=== PATIENT | female | born 1940 | race Caucasian/White ===

== ENCOUNTER 2021-07-30 19:45 | Inpatient (IN) | payer OTHER, MEDICAID ==
[~2021-07-30] VITALS: Ht 144.8 cm; Wt 61.9 kg
[2021-07-30 21:31] LABS: Basophils # (auto) 0.1 10 ^3/uL (0-0.2); Basophils % (auto) 1.1 % (0.0-2.0); Eosinophils # (auto) 0.2 10 ^3/uL (0-0.8); Eosinophils % (auto) 1.9 % (0.0-7.0); Hematocrit 31.4 % (36.0-46.0); Hemoglobin 10.4 g/dL (12.2-16.2); Lymphocytes # (auto) 1.1 10 ^3/uL (0.4-5.4); Lymphocytes % (auto) 8.2 % (10.0-50.0); Mean Corpuscular Hemoglobin 27.1 pg (28.0-32.0); Mean Corpuscular Hgb Conc. 33.1 g/dL (32.0-36.0); Mean Corpuscular Volume 82.1 fL (80.0-100.0); Monocytes # (auto) 0.9 10 ^3/uL (0-1.3); Monocytes % (auto) 6.7 % (0.0-12.0); Neutrophils # (auto) 10.6 10 ^3/uL (1.6-8.6); Neutrophils % (auto) 82.1 % (37.0-80.0); Nucleated Red Blood Cells % 0.1 %; Red Blood Cells 3.82 10^6/uL (4.0-5.20); Red Cell Distribution Width 14.5 % (11.8-14.3); White Blood Cell 12.9 10^3/uL (4.4-10.8)
[2021-07-30 21:32] LABS: Albumin 3.1 g/dL (3.4-5.0); Calcium 6.9 mg/dL (8.5-10.1); Magnesium 1.5 mg/dL (1.6-2.6); Potassium 3.1 mmol/L (3.5-5.1)
[2021-07-30 21:39] LABS: BUN/Creatinine Ratio 14.9; Bilirubin, Total 0.3 mg/dL (0.2-1.0); Total Protein 7.2 g/dL (6.4-8.2)
[2021-07-30 21:58] LABS: INR 1.16 (0.9-1.15); Partial Thromboplastin Time 31.4 sec (23.6-33.0)
[2021-07-30] MEDS ORDERED: ACETAMINOPHEN 325 MG TAB PO PRN (22:45)
[2021-07-30] MEDS ORDERED: MORPHINE SULFATE INJECTION 2 MG/ML SYRG IV PRN (22:45)
[2021-07-30] MEDS ORDERED: ONDANSETRON HCL 4 MG/2 ML VIAL IV PRN (22:45)
[2021-07-30] MEDS ORDERED: ENOXAPARIN SOD 100 MG/1 ML SYRINGE SC ONE (22:45)
[2021-07-30] MEDS ORDERED: NITROGLYCERIN 0.4 MG SL TAB SL PRN (22:45)
[2021-07-30] MEDS ORDERED: POTASSIUM CHL 20 Meq TABLET PO ONE (22:45)
[2021-07-30] MEDS ORDERED: cloNIDine HCL 0.1 MG TAB PO PRN (22:45)
[2021-07-31] MEDS: MAGNESIUM SULFATE 1GM/100ML 100 ML IV SCH ×2 (00:08→01:15)
[2021-07-31 04:10] VITALS: BP 147/66
[2021-07-31] MEDS ORDERED: HYDR-4833 PO (04:35)
[2021-07-31] MEDS ORDERED: OMEP20TA PO (04:35)
[2021-07-31] MEDS ORDERED: VENL75CA78 PO (04:35)
[2021-07-31] MEDS ORDERED: LISI-716 PO (04:35)
[2021-07-31 05:23] VITALS: BP 147/75
[2021-07-31] MEDS: HYDROcodone-ACET 5/325MG TAB PO PRN ×2 (07:49→22:53)
[2021-07-31 08:55] LABS: Basophils # (auto) 0.1 10 ^3/uL (0-0.2); Basophils % (auto) 0.8 % (0.0-2.0); Eosinophils # (auto) 0.3 10 ^3/uL (0-0.8); Eosinophils % (auto) 3.1 % (0.0-7.0); Hematocrit 28.9 % (36.0-46.0); Hemoglobin 9.8 g/dL (12.2-16.2); Lymphocytes # (auto) 1.3 10 ^3/uL (0.4-5.4); Mean Corpuscular Hemoglobin 28.1 pg (28.0-32.0); Mean Corpuscular Hgb Conc. 33.7 g/dL (32.0-36.0); Mean Corpuscular Volume 83.2 fL (80.0-100.0); Monocytes # (auto) 0.9 10 ^3/uL (0-1.3); Monocytes % (auto) 8.7 % (0.0-12.0); Neutrophils # (auto) 7.5 10 ^3/uL (1.6-8.6); Neutrophils % (auto) 74.4 % (37.0-80.0); Red Blood Cells 3.48 10^6/uL (4.0-5.20); Red Cell Distribution Width 14.5 % (11.8-14.3); White Blood Cell 10.1 10^3/uL (4.4-10.8)
[2021-07-31 09:00] VITALS: BP 146/61
[2021-07-31 09:21] LABS: Calcium 6.9 mg/dL (8.5-10.1); Potassium 3.2 mmol/L (3.5-5.1)
[2021-07-31 09:27] LABS: BUN/Creatinine Ratio 16.3
[2021-07-31] MEDS: PANTOPRAZOLE 40 MG TAB PO SCH (09:54)
[2021-07-31] MEDS: ENOXAPARIN SOD 40 MG/0.4 ML SYRINGE SC SCH ×4 (09:54→21:42)
[2021-07-31] MEDS: ASPirin 81 mg TAB PO SCH (09:54)
[2021-07-31] MEDS ORDERED: LISINOPRIL 5 MG TAB PO SCH (10:00)
[2021-07-31] MEDS ORDERED: METOPROLOL TARTRATE 50 MG TAB PO ONE (11:45)
[2021-07-31] MEDS: POTASSIUM EFFERVESENT TAB 25 MEQ PO ONE ×2 (11:45→12:22)
[2021-07-31] MEDS: POTASSIUM CHL 20 Meq TABLET PO ONE ×2 (12:45→13:13)
[2021-07-31] MEDS: POTASSIUM CHL 10 Meq TABLET PO ONE ×2 (12:45→13:13)
[2021-07-31 13:00] VITALS: BP 129/54
[2021-07-31] MEDS ORDERED: MORPHINE SULFATE 4 MG/ML SYR/VIAL IV PRN (13:00)
[2021-07-31] MEDS ORDERED: NITROGLYCERIN 0.4 MG SL TAB SL PRN (13:00)
[2021-07-31] MEDS: VENLAFAXINE HCL 37.5mg XR cap PO SCH (13:21)
[2021-07-31] MEDS ORDERED: POTASSIUM CHL 20 Meq TABLET PO ONE (13:30)
[2021-07-31] MEDS ORDERED: POTASSIUM CHL 10 Meq TABLET PO ONE (13:30)
[2021-07-31 17:00] VITALS: BP 135/69
[2021-07-31] MEDS: ATORVASTATIN 20 MG TAB PO SCH (21:35)
[2021-07-31] MEDS: METOPROLOL TARTRATE 50 MG TAB PO SCH (21:37)
[2021-07-31 22:25] VITALS: BP 147/74
[2021-08-01 05:00] VITALS: BP 135/65
[2021-08-01 08:00] VITALS: BP 116/67
[2021-08-01] MEDS: HYDROcodone-ACET 5/325MG TAB PO PRN ×2 (08:16→22:40)
[2021-08-01 09:00] VITALS: BP 116/67
[2021-08-01] MEDS ORDERED: VENLAFAXINE HCL 37.5mg XR cap PO SCH (10:00)
[2021-08-01] MEDS: ENOXAPARIN SOD 40 MG/0.4 ML SYRINGE SC SCH ×3 (10:00→21:01)
[2021-08-01] MEDS: PANTOPRAZOLE 40 MG TAB PO SCH (11:52)
[2021-08-01] MEDS: VENLAFAXINE HCL 37.5mg XR cap PO SCH (11:53)
[2021-08-01] MEDS: METOPROLOL TARTRATE 50 MG TAB PO SCH ×2 (11:53→21:00)
[2021-08-01] MEDS: LISINOPRIL 20 MG TAB PO SCH (11:53)
[2021-08-01] MEDS: ASPirin 81 mg TAB PO SCH (11:53)
[2021-08-01 12:45] VITALS: BP 145/66
[2021-08-01 16:42] VITALS: BP 103/66
[2021-08-01 20:11] LABS: Urine Bacteria NONE SEEN /hpf (None Seen); Urine Blood Negative /uL (Negative); Urine Hyaline Cast FEW /lpf (0 - 2); Urine Mucus FEW (None Seen); Urine Specific Gravity 1.028 (1.001-1.035); Urine WBC 3 /hpf (0 - 5)
[2021-08-01] MEDS: ATORVASTATIN 20 MG TAB PO SCH (21:00)
[2021-08-02 05:00] VITALS: BP 118/64
[2021-08-02 06:53] LABS: Potassium 4.2 mmol/L (3.5-5.1)
[2021-08-02 07:01] LABS: BUN/Creatinine Ratio 29.5; Calcium 7.8 mg/dL (8.5-10.1)
[2021-08-02 09:00] VITALS: BP 138/70
[2021-08-02] MEDS: ENOXAPARIN SOD 40 MG/0.4 ML SYRINGE SC SCH ×2 (10:00→22:00)
[2021-08-02] MEDS: ASPirin 81 mg TAB PO SCH (10:03)
[2021-08-02] MEDS: PANTOPRAZOLE 40 MG TAB PO SCH (10:04)
[2021-08-02] MEDS: VENLAFAXINE HCL 37.5mg XR cap PO SCH (10:04)
[2021-08-02] MEDS: METOPROLOL TARTRATE 50 MG TAB PO SCH ×2 (10:04→22:43)
[2021-08-02] MEDS: LISINOPRIL 20 MG TAB PO SCH (10:05)
[2021-08-02] MEDS: HYDROcodone-ACET 5/325MG TAB PO PRN (10:20)
[2021-08-02 13:00] VITALS: BP 123/60
[2021-08-02 17:00] VITALS: BP 135/60
[2021-08-02 22:00] VITALS: BP 150/74
[2021-08-02] MEDS: ATORVASTATIN 20 MG TAB PO SCH (22:42)
[2021-08-03] MEDS: HYDROcodone-ACET 5/325MG TAB PO PRN ×2 (00:54→08:56)
[2021-08-03 05:00] VITALS: BP 158/75
[2021-08-03] MEDS: ENOXAPARIN SOD 40 MG/0.4 ML SYRINGE SC SCH ×2 (08:53→22:00)
[2021-08-03] MEDS: ASPirin 81 mg TAB PO SCH (08:54)
[2021-08-03] MEDS: PANTOPRAZOLE 40 MG TAB PO SCH (08:54)
[2021-08-03] MEDS: METOPROLOL TARTRATE 50 MG TAB PO SCH ×2 (08:55→22:00)
[2021-08-03] MEDS: LISINOPRIL 20 MG TAB PO SCH (08:55)
[2021-08-03] MEDS: VENLAFAXINE HCL 37.5mg XR cap PO SCH (08:56)
[2021-08-03 09:00] VITALS: BP 154/56
[2021-08-03 13:00] VITALS: BP 147/54
[2021-08-03] MEDS ORDERED: HYDROcodone-ACET 5/325MG TAB PO PRN (15:00)
[2021-08-03 17:15] VITALS: BP 104/48
[2021-08-03 22:00] VITALS: BP 144/62
[2021-08-03] MEDS: ATORVASTATIN 20 MG TAB PO SCH (22:38)
[2021-08-04 05:00] VITALS: BP 151/61
[2021-08-04] MEDS: ENOXAPARIN SOD 40 MG/0.4 ML SYRINGE SC SCH (07:41)
[2021-08-04 08:36] VITALS: BP 116/62
[2021-08-04] MEDS: ASPirin 81 mg TAB PO SCH (09:14)
[2021-08-04] MEDS: PANTOPRAZOLE 40 MG TAB PO SCH (09:15)
[2021-08-04] MEDS: LISINOPRIL 20 MG TAB PO SCH (09:15)
[2021-08-04] MEDS: VENLAFAXINE HCL 37.5mg XR cap PO SCH (09:15)
[2021-08-04] MEDS: METOPROLOL TARTRATE 50 MG TAB PO SCH (09:17)
== END 2021-08-04 13:03 | disposition home or self-care (01) | DRG 280 ==
LOC: EDBD 19:45 → ER 19:47 → TELE 22:41 → WEST WING 07-31 01:59 → TELE-WESTW 07-31 02:00
PROVIDERS: ADMIT Nurse Practitioner; ATTEND Family Medicine
DX: I21.4 Non-ST elevation (NSTEMI) myocardial infarction (principal); R65.11 Systemic inflammatory response syndrome (SIRS) of non-infectious origin with acute organ dysfunction; E43 Unspecified severe protein-calorie malnutrition; I10 Essential (primary) hypertension; E78.5 Hyperlipidemia, unspecified; D64.9 Anemia, unspecified; E87.6 Hypokalemia; Z20.822 Contact with and (suspected) exposure to COVID-19; F32.A Depression, unspecified; K21.9 Gastro-esophageal reflux disease without esophagitis; E87.8 Other disorders of electrolyte and fluid balance, not elsewhere classified; E78.00 Pure hypercholesterolemia, unspecified; Z68.29 Body mass index [BMI] 29.0-29.9, adult; Z98.51 Tubal ligation status
CPT/HCPCS: 36415; 71045; 80048; 80053; 81001; 82270; 83735; 83880; 84484; 85025; 85379; 85610; 85730; 87426; 93005; 93306; 96365; 96372; 99291; G0378

== ENCOUNTER 2022-01-12 18:26 | Emergency (ER) | payer OTHER, MEDICAID ==
[~2022-01-12] VITALS: Ht 144.8 cm; Wt 59.9 kg
[~2022-01-12 18:26] MED LIST: HYDR-4833 PO; LISI-716 PO; OMEP20TA PO; VENL75CA78 PO
[2022-01-12 19:10] LABS: Eosinophils # (auto) 0.2 10 ^3/uL (0-0.8); Nucleated Red Blood Cells % 0.1 %; Red Cell Distribution Width 14.7 % (11.8-14.3)
[2022-01-12 19:11] LABS: Basophils # (auto) 0.2 10 ^3/uL (0-0.2); Basophils % (auto) 1.8 % (0.0-2.0); Eosinophils % (auto) 1.6 % (0.0-7.0); Hematocrit 36.9 % (36.0-46.0); Hemoglobin 12.3 g/dL (12.2-16.2); Lymphocytes # (auto) 0.9 10 ^3/uL (0.4-5.4); Lymphocytes % (auto) 7.3 % (10.0-50.0); Mean Corpuscular Hemoglobin 26.4 pg (28.0-32.0); Mean Corpuscular Hgb Conc. 33.4 g/dL (32.0-36.0); Monocytes # (auto) 0.7 10 ^3/uL (0-1.3); Monocytes % (auto) 5.7 % (0.0-12.0); Neutrophils # (auto) 10.8 10 ^3/uL (1.6-8.6); Neutrophils % (auto) 83.6 % (37.0-80.0); Red Blood Cells 4.67 10^6/uL (4.0-5.20); White Blood Cell 12.9 10^3/uL (4.4-10.8)
[2022-01-12 19:28] LABS: Albumin 3.5 g/dL (3.4-5.0); Amylase 83 U/L (25-115); BUN/Creatinine Ratio 14.8; Calcium 8.2 mg/dL (8.5-10.1); Lipase 73 U/L (73-393); Potassium 3.4 mmol/L (3.5-5.1)
[2022-01-12 19:31] LABS: Bilirubin, Total 0.2 mg/dL (0.2-1.0)
[2022-01-12] MEDS ORDERED: ONDA-144 PO (20:32)
[2022-01-12 23:20] VITALS: BP 169/72
== END 2022-01-12 23:31 | disposition home or self-care (01) ==
LOC: EDBD 18:26 → ER 18:26
DX: R11.2 Nausea with vomiting, unspecified (principal); R42 Dizziness and giddiness; I10 Essential (primary) hypertension; I25.2 Old myocardial infarction; E78.5 Hyperlipidemia, unspecified; K21.9 Gastro-esophageal reflux disease without esophagitis; Z79.899 Other long term (current) drug therapy
CPT/HCPCS: 36415; 74176; 80053; 82150; 83690; 84484; 85025; 93005